=== PATIENT | female | born 1950 | race Caucasian/White ===

== ENCOUNTER 2017-12-25 17:38 | Emergency (ER) | payer OTHER, MEDICARE ==
[~2017-12-25] VITALS: Ht 157.5 cm; Wt 80.7 kg
[~2017-12-25 17:38] MED LIST: CIPRO500 M1 PO; DELTASONE20 MG PO; FLOMAX0.4 M1 PO; KETOROLAC TROME10 M1 PO; MELOXICAM15 M1 PO; NEXIUM40 M1 PO; OMEGA-3 ACID ETH1 GM PO; PERCOCET 5-3251 EACH PO; WELLBUTRIN XL300 M2 PO; ZOFRAN4 M2 PO
--- NOTE | 2017-12-25 17:59 | ED GI/GU/ABDOMINAL COMPLAINT ---
History of Present Illness General Chief Complaint: Abdominal Pain/Flank Pain Stated Complaint: LT SIDE ABDOMINAL PAIN, PAIN INCREASES WITH EATING Source: patient Exam Limitations: no limitations Allergies Coded Allergies: NO KNOWN ALLERGIES (07/17/16) Reconcile Medications Bupropion HCl (Wellbutrin XL) 300 MG TAB.ER.24H 1 TAB PO QPM UNKNOWN ( Reported) Esomeprazole (Nexium) 40 MG CAPSULE.DR 1 CAP PO DAILY GERD (Reported) [place]-3 Acid Ethyl Esters 1 GRAM CAPSULE 2 CAP PO BID VITAMINS (Reported) Oxycodone HCl/Acetaminophen (Percocet 5-325 MG Tablet) 5 MG-325 MG TABLET 1 TAB PO 4 TIMES/DAY PRN pain Prednisone (Deltasone) 20 MG TABLET 2 TAB PO DAILY gout Triage Note: 67 YEAR OLD FEMALE HISTORY OF DIVERTICULITIS AND GASTRIC BYPASS STATES THAT SHE HAS BEEN HAVING PAIN LUQ FOR THE PAST 4 DAYS THAT IS INCREASING IN INTENSITY, PAIN IS CONSTANT AND INCREASES WHEN SHE EATS OR DRINKS ANYTHING. ALSO STATES THAT SHE CAN FEEL A LUMP TO THIS AREA AND THAT SHE IS FEELING SOB DUE TO SHE CANT TAKE NORMAL BREATH WITHOUT PAIN INCREASING. LBM TODAY AND NORMAL FOR HER, DENIES N/V/D OR URINARY SYMPTOMS. Triage Nurses Notes Reviewed? yes ? N Is pt currently ? No Duration: constant Timing: recent history Quality/Severity: sharpness, severe Severity Numbers: 8 Location: left lower quadrant, left upper quadrant HPI: Patient is a 67-year-old female with a past medical history of gastric bypass approximately 5 months ago performed in [place], who presents emergency room with concerns of a three-day history of left upper quadrant and lower quadrant abdominal pain. Symptoms are made worse with eating and drinking. Last bowel movement was today no blood no melena. Denies any fever chills back pain shortness breath cough vaginal bleeding discharge dysuria hematuria (Bhaskar Monroe) Vital Signs & Intake/Output Vital Signs & Intake/Output Vital Signs Date Time Temp Pulse Resp B/P B/P Pulse O2 O2 Flow FiO2 Mean Ox Delivery Rate 12/25 2335 98.3 77 18 174/78 97 Room Air ED Intake and Output 12/26 0000 12/25 1200 Intake Total 120 Output Total Balance 120 Intake, Oral 120 Patient 178 lb Weight (Kartik Stoll) Past History Travel History Traveled to [place] past 21 day No Medical History Any Pertinent Medical History? see below for history Neurological: NONE EENT: NONE Cardiovascular: NONE Respiratory: NONE Gastrointestinal: DIVERTICULOSIS DIVERTICULITIS. Hepatic: NONE Renal: NONE Musculoskeletal: chronic back pain Psychiatric: NONE Endocrine: NONE Surgical History Surgical History: appendectomy, cholecystectomy, lumpectomy, spinal fusion Psychosocial History What is your primary language Czech Tobacco Use: Never used ETOH Use: denies use Illicit Drug Use: denies illicit drug use Family History Hx Contributory? No (Bhaskar Monroe) Review of Systems Review of Systems Constitutional: Reports: no symptoms. EENTM: Reports: no symptoms. Respiratory: Reports: no symptoms. Cardiovascular: Reports: no symptoms. GI: Reports: see HPI, abdominal pain. Genitourinary: Reports: no symptoms. Musculoskeletal: Reports: no symptoms. Skin: Reports: no symptoms. Neurological/Psychological: Reports: no symptoms. Hematologic/Endocrine: Reports: no symptoms. Immunologic/Allergic: Reports: no symptoms. All Other Systems: Reviewed and Negative (Bhaskar Monroe) Physical Exam Physical Exam General Appearance: no apparent distress, alert, comfortable Head: atraumatic Eyes: Bilateral: normal appearance. Ears, Nose, Throat, Mouth: moist mucous membrane Neck: normal inspection Respiratory: normal breath sounds, no respiratory distress Cardiovascular: regular rate/rhythm Gastrointestinal: normal bowel sounds, soft, LLQ PAIN Extremities: normal range of motion Core Measures ACS in differential dx? No Sepsis Present: No Sepsis Focused Exam Completed? No (Bhaskar Monroe) Progress Differential Diagnosis: AAA, AMI, appendicitis, biliary colic, bowel obstruction , colon cancer, cholecystitis, diverticulitis, ectopic , endometritis, esophageal varices, gastritis, hepatitis, hernia, hemorrhoids, ischemic bowel, inflamm bowel dis, intrauterine , kidney stone, Marixa-Mario tear, ovarian cyst, ovarian torsion, pancreatitis, PID/cervicitis, peptic ulcer, PUD/ GERD, perforated viscous, SBO, threatened AB, UTI/pyelo Initial ED EKG: none Hand-Off Endorsed To: Kartik Stoll (Bhaskar Monroe) Plan of Care: Orders Procedure Date/time Status LACTIC ACID 12/25 1808 Complete COMPREHENSIVE METABOLIC PANEL 12/25 1808 Complete CBC WITHOUT DIFFERENTIAL 12/25 1808 Complete Laboratory Tests 12/25/17 2109: Lactic Acid Cancelled 12/25/17 1900: Anion Gap 10, Estimated GFR 56 L, BUN/Creatinine Ratio 12.0, Glucose 91, Lactic Acid 0.8, Calcium 8.9, Total Bilirubin 0.6, AST 20, ALT 27, Alkaline Phosphatase 65, Total Protein 6.3, Albumin 3.5, Globulin 2.8, Albumin/Globulin Ratio 1.3, CBC w Diff NO MAN DIFF REQ, RBC 4.07 L, MCV 86.2, MCH 29.1, MCHC 33.7, RDW 13.9 , MPV 8.1, Gran % 68.0, Lymphocytes % 23.9, Monocytes % 5.8, Eosinophils % 1.7, Basophils % 0.6, Absolute Granulocytes 5.5, Absolute Lymphocytes 1.9, Absolute Monocytes 0.5, Absolute Eosinophils 0.1, Absolute Basophils 0 Patient on initial presentation suggesting couplet bedside no apparent distress afebrile reviewed all blood work with patient unremarkable findings CT scan currently pending. DISCUSSED HANDOFF WITH KARTIK REID PA-C (Srinivas DUNN,Bhaskar) Patient was signed out to me by Bhaskar Stout. Her blood work is unremarkable. CT scan of the abdomen and pelvis shows left upper quadrant epicloic appengitis. This is directly where the patient has her pain. She is feeling better after receiving morphine here. She was able tolerate fluids. Results the patient. Advised her to follow-up with a GI doctor and her surgeon as soon as possible. Continue Tylenol 1000 mg every 6 hours as needed for pain. Percocet for severe pain only discussed return precautions case discussed with Dr. Hays he agrees. Diagnostic Imaging: Viewed by Me: CT Scan. Discussed w/RAD: CT Scan. Radiology Impression: PATIENT: BERNICE HANKINS PRESENT AGE: 67 PATIENT ACCOUNT NO: [id number] : 52 LOCATION: [facility] ORDERING PHYSICIAN: Bhaskar DUNN SERVICE DATE: 12/25/17 EXAM TYPE: CAT - CT ABD & PELVIS W IV CONTRAST EXAMINATION: CT ABDOMEN AND PELVIS WITH CONTRAST CLINICAL INFORMATION: Left lower quadrant abdominal pain. COMPARISON: 07/17/2016 CT scan. TECHNIQUE: Multidetector volumetric imaging was performed of the abdomen and pelvis following IV administration of 95 mL of Optiray 320 intravenous contrast. Sagittal and coronal reformatted images were obtained on the technologist's workstation. DLP: 484.74 mGy-cm FINDINGS: LUNG BASES: No focal pulmonary consolidation is seen in the visualized lower lung de la garza. LIVER , GALLBLADDER, AND BILIARY TREE: The liver is normal in size, shape, and attenuation. No focal hepatic lesion or biliary ductal dilatation is present. The gallbladder is absent, prior cholecystectomy. Prominence of the CBD and mild intrahepatic biliary ductal dilatation noted. The CBD measures about 1.2 cm in transverse diameter at the level of head of pancreas. No CBD calcified stone. PANCREAS: Unremarkable. SPLEEN: Unremarkable. ADRENAL GLANDS: Unremarkable. KIDNEYS AND URETERS: The kidneys are normal in size, shape, and attenuation. No hydronephrosis, hydroureter seen. No perinephric stranding. There is 5.2 cm cortical cyst originating from the upper pole of the right kidney. There is a 1.3 cm hypodense lesion originating from the posterior lower pole of the left kidney. It cannot be further evaluated due to its small size. There is a punctate stone in the upper pole of the left kidney as seen on coronal image 61. BLADDER: The urinary bladder is partially full and unremarkable. GASTROINTESTINAL TRACT: The patient is status post gastric bypass surgery without evidence of obstruction at the anastomotic site. The small bowel loops and colon are not dilated. There is a 2.7 cm fat density with surrounding inflammatory stranding in the left upper quadrant of the abdomen, adjacent to a loop of jejunum. The finding is better seen on axial image 230/800 from series 3 and coronal image 19 and sagittal image 57. This loop of jejunum is located between the anterior abdominal wall and transverse colon, which could be sequela to gastric bypass surgery. There is no evidence of bowel obstruction. The appendix is not seen, however, there are no inflammatory changes in the expected position of the appendix to suggest acute appendicitis. No free intra-abdominal fluid. ABDOMINAL WALL: No significant hernia is appreciated. LYMPH NODES: Normal. VASCULAR: Unremarkable. PELVIC VISCERA: Unremarkable. OSSEOUS STRUCTURES : Postsurgical changes of fusion at L5-S1 level with grade 1 anterolisthesis of L5 on S1. IMPRESSION: 1. The patient is status post gastric bypass surgery without evidence of obstruction. There is a 2.7 cm mesenteric fat density in the left upper quadrant of the abdomen, adjacent to a loop of jejunum in this region with surrounding mesenteric fat stranding. This is equivalent to the epiploic appendagitis. 2. Right renal cortical cyst. 3. A 1.3 cm left renal cortical hypodense lesion which cannot be further characterized due to its small size. 4. Prior cholecystectomy. DICTATED BY: Marito Marcelo MD DATE/TIME DICTATED:2226 SULFUR BURNER:CHALINO DATE/TIME TRANSCRIBED:12/25/172226 CONFIDENTIAL, DO NOT COPY WITHOUT APPROPRIATE AUTHORIZATION. <Electronically signed in Other Vendor System> SIGNED BY: Marito Marcelo MD 12/25/17 9509 (Kartik Stoll) Departure Departure Condition: Stable Departure Forms: Customer Survey General Discharge Information (Bhaskar Monroe) Departure Disposition: HOME OR SELF CARE Clinical Impression Primary Impression: Abdominal pain Qualifiers: Abdominal location: left upper quadrant Qualified Code: R10.12 - Left upper quadrant pain Referrals: Nallely Farah MD (PCP/Family) Additional Instructions: Follow-up with your surgeon as soon as possible. Use Tylenol 1000 mg every 6 hours as needed for pain. Percocet for severe pain only monitor symptoms return with any concerns. Prescriptions: Current Visit Scripts Oxycodone HCl/Acetaminophen (Percocet 5-325 MG Tablet) 1 TAB PO 4 TIMES/DAY PRN pain #10 TAB (Kartik Stoll) PA/FREELANCE GRAPHIC DESIGNER Co-Sign Statement Statement: ED Attending supervision documentation- [] I saw and evaluated the patient. I have also reviewed all the pertinent lab results and diagnostic results. I agree with the findings and the plan of care as documented in the PA's/FREELANCE GRAPHIC DESIGNER's documentation. [x] I have reviewed the ED Record and agree with the PA's/FREELANCE GRAPHIC DESIGNER's documentation. [] Additions or exceptions (if any) to the PAs/FREELANCE GRAPHIC DESIGNER's note and plan are summarized below: [] (Lis MATA,Francis Erickson)
[2017-12-25 19:40] LABS: ABSOLUTE BASOPHIL COUNT 0 /CUMM (0.0-0.2); ABSOLUTE EOSINOPHIL COUNT 0.1 /CUMM (0.0-0.7); ABSOLUTE GRANULOCYTE CT 5.5 /CUMM (1.4-6.5); ABSOLUTE LYMPH COUNT 1.9 /CUMM (1.2-3.4); ABSOLUTE MONOCYTE COUNT 0.5 /CUMM (0.10-0.60); BASOPHIL % 0.6 % (0.0-2.0); EOSINOPHIL % 1.7 % (0-5); HEMATOCRIT 35.1 % (37-47); MEAN CORPUSCULAR HGB 29.1 PG (27.0-31.0); MEAN CORPUSCULAR HGB CONC 33.7 G/DL (33.0-37.0); MEAN CORPUSCULAR VOLUME 86.2 FL (81.0-99.0); MEAN PLATELET VOLUME 8.1 FL (7.4-10.4); PLATELET COUNT 317 /CUMM (130-400); RBC DISTRIBUTION WIDTH 13.9 % (11.5-14.5); RED BLOOD CELL CT 4.07 /CUMM (4.20-5.40); WHITE BLOOD CELL COUNT 8.1 /CUMM (4.8-10.8)
--- NOTE | 2017-12-25 23:02 | CT SCAN REPORT ---
EXAMINATION: CT ABDOMEN AND PELVIS WITH CONTRAST CLINICAL INFORMATION: Left lower quadrant abdominal pain. COMPARISON: 07/17/2016 CT scan. TECHNIQUE: Multidetector volumetric imaging was performed of the abdomen and pelvis following IV administration of 95 mL of Optiray 320 intravenous contrast. Sagittal and coronal reformatted images were obtained on the technologist's workstation. DLP: 484.74 mGy-cm FINDINGS: LUNG BASES: No focal pulmonary consolidation is seen in the visualized lower lung de la garza. LIVER, GALLBLADDER, AND BILIARY TREE: The liver is normal in size, shape, and attenuation. No focal hepatic lesion or biliary ductal dilatation is present. The gallbladder is absent, prior cholecystectomy. Prominence of the CBD and mild intrahepatic biliary ductal dilatation noted. The CBD measures about 1.2 cm in transverse diameter at the level of head of pancreas. No CBD calcified stone. PANCREAS: Unremarkable. SPLEEN: Unremarkable. ADRENAL GLANDS: Unremarkable. KIDNEYS AND URETERS: The kidneys are normal in size, shape, and attenuation. No hydronephrosis, hydroureter seen. No perinephric stranding. There is 5.2 cm cortical cyst originating from the upper pole of the right kidney. There is a 1.3 cm hypodense lesion originating from the posterior lower pole of the left kidney. It cannot be further evaluated due to its small size. There is a punctate stone in the upper pole of the left kidney as seen on coronal image 61. BLADDER: The urinary bladder is partially full and unremarkable. GASTROINTESTINAL TRACT: The patient is status post gastric bypass surgery without evidence of obstruction at the anastomotic site. The small bowel loops and colon are not dilated. There is a 2.7 cm fat density with surrounding inflammatory stranding in the left upper quadrant of the abdomen, adjacent to a loop of jejunum. The finding is better seen on axial image 230/800 from series 3 and coronal image 19 and sagittal image 57. This loop of jejunum is located between the anterior abdominal wall and transverse colon, which could be sequela to gastric bypass surgery. There is no evidence of bowel obstruction. The appendix is not seen, however, there are no inflammatory changes in the expected position of the appendix to suggest acute appendicitis. No free intra-abdominal fluid. ABDOMINAL WALL: No significant hernia is appreciated. LYMPH NODES: Normal. VASCULAR: Unremarkable. PELVIC VISCERA: Unremarkable. OSSEOUS STRUCTURES: Postsurgical changes of fusion at L5-S1 level with grade 1 anterolisthesis of L5 on S1. IMPRESSION: 1. The patient is status post gastric bypass surgery without evidence of obstruction. There is a 2.7 cm mesenteric fat density in the left upper quadrant of the abdomen, adjacent to a loop of jejunum in this region with surrounding mesenteric fat stranding. This is equivalent to the epiploic appendagitis. 2. Right renal cortical cyst. 3. A 1.3 cm left renal cortical hypodense lesion which cannot be further characterized due to its small size. 4. Prior cholecystectomy.
[2017-12-25 23:35] VITALS: BP 174/78
[2017-12-25] MEDS ORDERED: PERCOCET 5-3251 EACH PO (23:40)
== END 2017-12-25 23:57 ==
LOC: ERH 17:38
PROVIDERS: Physician Assistant
DX: R10.12 Left upper quadrant pain (principal); R10.32 Left lower quadrant pain
CPT/HCPCS: 74177; 96374